=== PATIENT | male | born 1950 | race Caucasian/White ===

== ENCOUNTER → 2017-10-17 | Emergency (ER) | payer OTHER ==
[~2017-10-17] VITALS: Ht 170.2 cm; Wt 68.9 kg
== END | disposition home or self-care (01) ==
LOC: ER 17:16
DX: J09.X2 Influenza due to identified novel influenza A virus with other respiratory manifestations (principal); R09.81 Nasal congestion

== ENCOUNTER 2021-06-05 07:28 | Outpatient (CLI) | payer OTHER | END 2021-06-05 07:40 | disposition home or self-care (01) | LOC: SONOGRAMA 07:28 | PROVIDERS: ATTEND Urology | DX: M54.59 Other low back pain (principal); R30.0 Dysuria; N28.89 Other specified disorders of kidney and ureter; N20.0 Calculus of kidney ==